=== PATIENT | female | born 1990 | race Caucasian/White ===

== ENCOUNTER 2024-02-01 17:15 | Emergency (ER) | payer OTHER, SELFPAY ==
[2024-02-01 17:19] VITALS: BP 115/87
--- NOTE | 2024-02-01 17:45 | ED.GENMED ---
History of Present Illness
General
Chief Complaint: Abdominal Symptoms
Source: patient
Exam Limitations: none
Time Seen by Provider: 02/01/24 17:44
Nursing documentation reviewed up to this point in time: agreed with
History of Present Illness
History of Present Illness:
33-year-old female presents for n/v/d since this a.m. No known exposures, no recent antibiotics. No recent travel.
Cannot hold anything down, tried mckenzie root, Pepto Bismol and vomited them.
Frequent non bloody diarrhea since this a.m.
Has epigastric pain she thinks from vomiting so much, otherwise no abdominal pain.
Past History
Past History
ED Past Medical History: Other (Bartholin Cyst); Negative Asthma, HTN, Hypercholesterolemia or NIDDM
ED Past Surgical History: None
Social History
Tobacco: Non-smoker
Alcohol: None
Personal: Single
Living: alone
Review of Systems
Review of Systems
Allergies reviewed?: Yes
All Other Systems: ROS reviewed and negative except as documented in HPI and ROS
Constitutional: Denies fever or chills
EENT: Denies sore throat
Respiratory: Denies trouble breathing
Cardiac: Denies chest pain
ABD/GI: Reports abdominal pain (sore from vomiting), nausea, vomiting and diarrhea; Denies bloody stools or black stools
: Denies dysuria, incontinence, difficulty voiding, urgency or bleeding
Musculoskeletal: Reports no symptoms
Skin: Reports no symptoms
Neurological: Reports no symptoms
Phy Exam
Physical Exam
Physical Exam:
GENERAL: Acute distress with diarrhea, n/v. Hyperpneic. A&Ox3.
CONSTITUTIONAL: Afebrile.
EYES: clear, conjunctivae normal
Neck: Supple
ENMT: dry mucus membranes, Pharynx nl
RESPIRATORY: Tachypneic at 28 RR. Regular respirations, nonlabored, lungs clear.
CARDIOVASCULAR: Regular rate and rhythm, no murmurs, no rubs.
GI: Soft, nontender, normal BS
MUSCULOSKELETAL: Moves with ease. Well perfused.
SKIN: Warm, dry, pink
PSYCH: Anxiousl mood and affect. Well kept, interactive and appropriate
NEUROLOGIC: Awake, alert and oriented. No focal neurological deficits
Course
Orders/Labs/Results
Orders:
Orders
02/01/24 17:53
IV Insert/Care/Rem.- Treatment PRN
0.9% Sodium Chloride 1000 ml [Nss] 1,000 ml IV BOLUS
Ondansetron Injectable [Zofran] 4 mg IV NOW STA
Test Result ONCE
02/01/24 18:07
Complete Blood Count/With Diff Urgent
Comprehensive Metabolic Panel Urgent
HCG, Serum Qualitative Screen Urgent
Lipase Urgent
02/01/24 18:51
CT Abd/Pel (IV only)-DH only Urgent
Comment:
Reason For Exam: n/v/diarrhea, abd pain
02/01/24 18:55
0.9% Sodium Chloride 1000 ml [Nss] 1,000 ml IV BOLUS
02/01/24 21:12
BMP [Basic Metabolic Panel] Urgent
Complete Blood Count/No Diff Urgent
Abnormal Lab Results
02/01/24 02/01/24
18:07 21:12
WBC 26.9 H 10^3/uL 19.2 H 10^3/uL
(4.8-10.8) (4.8-10.8)
RBC 5.48 H 10^6/uL
(4.20-5.40)
Plt Count 442 H 10^3/uL
(130-400)
Abs Immat Gran (auto) 0.2 H 10^3/uL
(0-0.05)
Absolute Neuts (auto) 25.5 H 10^3/uL
(1.4-6.5)
Absolute Lymphs (auto) 0.5 L 10^3/uL
(1.2-3.4)
Absolute Monos (auto) 0.7 H 10^3/uL
(0.1-0.6)
Immature Gran % 0.7 H %
(0-0.5)
Neutrophils % 94.7 H %
(42.2-75.2)
Lymphocytes % 1.9 L %
(20.5-51.1)
Carbon Dioxide 13 L* mmol/L 21 L mmol/L
(22-30) (22-30)
BUN 19 H mg/dl
(7-17)
Glucose 253 H mg/dl
(70-99)
Calcium 8.3 L D mg/dl
(8.4-10.2)
Total Bilirubin 1.9 H mg/dl
(0.2-1.3)
Alkaline Phosphatase 137 H U/L
(38-126)
Total Protein 8.8 H g/dl
(6.3-8.2)
Albumin 5.5 H g/dl
(3.5-5.0)
02/01/24 21:12
02/01/24 21:12
Vital Signs
Initial and Last Documented VS:
Initial Vital Signs
Pulse Resp BP Pulse Ox
87 19 115/87 100
02/01/24 17:19 02/01/24 17:19 02/01/24 17:19 02/01/24 17:19
Last Documented Vital Signs
Temp Pulse Resp BP Pulse Ox
98.1 F 80 18 118/70 99
02/01/24 18:39 02/01/24 20:42 02/01/24 20:42 02/01/24 20:42 02/01/24 20:42
Digital Strategy Director consulted with Physician
Digital Strategy Director consulted with physician?: Yes
Name of Physician Consulted: Markus
MDM/Problems Addressed
MDM/Problems Addressed:
33-year-old female presents for n/v/d since this a.m. No known exposures, no recent antibiotics. No recent travel.
Cannot hold anything down, tried mckenzie root, Pepto Bismol and vomited them.
Frequent non bloody diarrhea since this a.m.
Has epigastric pain she thinks from vomiting so much, otherwise no abdominal pain.
6:45 p.m.
Pt feeling better after meds
CBC: WBC 26.9 most likely reactive and dehydration
CMP: Bicarb 13 (pt with significant tachypnea/hyperventilation), Glucose 253, bili 1.9 otherwise unremarkable
Lipase WNL
HCG neg
Stool culture pending
CT abd/pelvis with IV contrast pending
Case discussed with Dr. Aparicio
Plan: give second liter NSS, then recheck CMP and CBC.
Case discussed with Ramon Wetzel [employer] who will assume care from this point
*Critical Care Note
Total Time (30-74mins, 75-104mins- exclusive of procedures): Not Applicable
ED Attending Note
-
Portions of this chart may have been created with voice recognition software.� Occasional wrong word or��sound alike� substitutions may have occurred due to the inherent limitations of voice recognition software.
Discharge Plan
Departure
Patient Disposition: Home (Routine Discharge)
Date of Disposition: 02/01/24
Time of Disposition: 21:42
Patient with high blood pressure during this ER visit?: No
Condition: Good
Covid-19: Not Applicable
Discharge Problem:
Enterocolitis
Instructions: Diarrhea in teens and adults, Clear Liquid Diet, Dehydration, Adult (DC), Nausea and Vomiting, Adult (DC)
Prescriptions:
New
ondansetron 4 mg tablet,disintegrating
4 mg PO Q8H PRN (Reason: nausea and vomiting) 3 Days Qty: 10 0RF
No Action
Medical Marijuana
1 dose inhalation PRN PRN (Reason: anxiety, IBS)
Referrals:
NONE,* [Family Provider] -
Activity Restrictions/Additional Instructions:
Follow up with your family doctor. Return to the emergency department immediately for any changes in/worsening of your symptoms.
Interventions
Interventions:
*General Assessment Last Done: 02/01/24 17:44
ED- Fall Risk Assessment Last Done: 02/01/24 17:44
*Nursing Disposition Last Done: 02/01/24 21:43
XI-Zrvmca-Wfzwkicclm Assessment Last Done: 02/01/24 17:44
Discharge Date and Time
Discharge Date/Time: 02/01/24 21:57
Print Language: [place]
[2024-02-01] MEDS: ZOFRAN 4 MG IV (18:06)
[2024-02-01] MEDS: NSS 1000 IV ×2 (18:06→19:00)
[2024-02-01 18:36] LABS: Hematocrit 45.4 % (37.0-47.0); Hemoglobin 15.8 g/dL (12.0-16.0); Mean Corp Hgb Conc. 34.8 g/dL (33.0-37.0); Mean Corpuscular Hgb 28.8 pg (27.0-31.0); Mean Corpuscular Volume 82.8 fL (81.0-99.0); Platelet Count 442 10^3/uL (130-400); Red Blood Cell Count 5.48 10^6/uL (4.20-5.40); Red Cell Dist. Width 12.5 % (11.5-14.5); White Blood Cell Count 26.9 10^3/uL (4.8-10.8)
[2024-02-01 18:38] LABS: HCG, Serum Qualitative Screen Negative
[2024-02-01 18:39] VITALS: BP 120/72
[2024-02-01 18:48] LABS: AST (SGOT) 25 U/L (14-36); Albumin 5.5 g/dl (3.5-5.0); Alkaline Phosphatase 137 U/L (38-126); Blood Urea Nitrogen 19 mg/dl (7-17); Calcium 10.2 mg/dl (8.4-10.2); Carbon Dioxide 13 mmol/L (22-30); Chloride 101 mmol/L (98-107); Glucose 253 mg/dl (70-99); Lipase 53 U/L (23-300); Sodium 139 mmol/L (135-145); Total Bilirubin 1.9 mg/dl (0.2-1.3); Total Protein 8.8 g/dl (6.3-8.2); eGFR > 60.00
[2024-02-01 18:53] LABS: ALT (SGPT) < 30 U/L (0-35)
[2024-02-01 19:01] LABS: % Basophils 0.2 % (0-2); % Immature Granulocytes 0.7 % (0-0.5); % Lymphocytes 1.9 % (20.5-51.1); % Monocytes 2.5 % (1.7-9.3); % Neutrophils 94.7 % (42.2-75.2); Absolute Basophils 0.1 10^3/uL (0-0.2); Absolute Immature Granulocytes 0.2 10^3/uL (0-0.05); Absolute Lymphocytes 0.5 10^3/uL (1.2-3.4); Absolute Monocytes 0.7 10^3/uL (0.1-0.6); Absolute Neutrophils 25.5 10^3/uL (1.4-6.5); Nucleated Red Blood Cells % 0 %
[2024-02-01 20:42] VITALS: BP 118/70
[2024-02-01 21:26] LABS: Hematocrit 38.2 % (37.0-47.0); Mean Corpuscular Hgb 28.6 pg (27.0-31.0); Mean Corpuscular Volume 84.1 fL (81.0-99.0); Mean Platelet Volume 9.8 fL (7.4-10.4); Platelet Count 346 10^3/uL (130-400); Red Blood Cell Count 4.54 10^6/uL (4.20-5.40); Red Cell Dist. Width 12.7 % (11.5-14.5); White Blood Cell Count 19.2 10^3/uL (4.8-10.8)
[2024-02-01 21:34] LABS: Blood Urea Nitrogen 13 mg/dl (7-17); Calcium 8.3 mg/dl (8.4-10.2); Carbon Dioxide 21 mmol/L (22-30); Chloride 106 mmol/L (98-107); Glucose 87 mg/dl (70-99); Sodium 139 mmol/L (135-145); eGFR > 60.00
== END 2024-02-01 21:57 | disposition home or self-care (01) ==
LOC: EMR 17:15
PROVIDERS: Nurse Practitioner; Registered Nurse; EMERGENCY PHYSICIAN Emergency Medicine
DX: K52.9 Noninfective gastroenteritis and colitis, unspecified (principal)
CPT/HCPCS: 99284; 96374; 96361; 74177; 80048; 80053; 83690; 84703; 85025; 85027; Q9967